=== PATIENT | female | born 1970 | race Caucasian/White ===

== ENCOUNTER → 2016-10-20 | Outpatient (CLI) | payer OTHER ==
--- NOTE | 2016-10-20 14:53 | MM ---
Reason for exam: screening (asymptomatic). Last mammogram was performed 1 year and 4 months ago. History: Family history of breast cancer in paternal grandmother. Took hormonal contraceptives for 10 years. Physical Findings: A clinical breast exam by your physician is recommended on an annual basis and results should be correlated with mammographic findings. MG Screening Mammo w CAD Bilateral CC and MLO view(s) were taken. Prior study comparison: June 24, 2015, bilateral MG 3d screening mammo w/cad. April 22, 2014, bilateral MG screening mammo w CAD. The breast tissue is heterogeneously dense. This may lower the sensitivity of mammography. No suspicious calcifications are seen. Waxing and waining cysts bilaterally. No significant changes when compared with prior studies. ASSESSMENT: Benign, BI-RAD 2 RECOMMENDATION: Routine screening mammogram of both breasts in 1 year.
== END | disposition home or self-care (01) ==
LOC: RADMAMWWP 08:24
PROVIDERS: ATTEND Obstetrics & Gynecology
DX: Z12.31 Encounter for screening mammogram for malignant neoplasm of breast (principal)

== ENCOUNTER → 2018-03-14 | Outpatient (CLI) | payer OTHER ==
--- NOTE | 2018-03-15 13:42 | MM ---
Reason for exam: screening (asymptomatic). Last mammogram was performed 1 year and 5 months ago. History: Family history of breast cancer in paternal grandmother. Took hormonal contraceptives for 10 years. Physical Findings: A clinical breast exam by your physician is recommended on an annual basis and results should be correlated with mammographic findings. MG Screening Mammo w CAD Bilateral CC and MLO view(s) were taken. Prior study comparison: October 20, 2016, bilateral MG screening mammo w CAD. June 24, 2015, bilateral MG 3d screening mammo w/cad. The breast tissue is heterogeneously dense. This may lower the sensitivity of mammography. No suspicious abnormality in the left breast. Retorareolar right focal asymmetry. ASSESSMENT: Incomplete: need additional imaging evaluation, BI-RAD 0 RECOMMENDATION: Special view mammogram of the right breast. If lesion persists on supplemental views, image directed ultrasound is recommended. [facility] will attempt to contact patient to return for supplemental views and ultrasound if indicated.
== END | disposition home or self-care (01) ==
LOC: RADMAMWWP 09:49
PROVIDERS: ATTEND Family Medicine
DX: Z12.31 Encounter for screening mammogram for malignant neoplasm of breast (principal)
CPT/HCPCS: 77067

== ENCOUNTER → 2019-02-07 | Outpatient (CLI) | payer OTHER ==
--- NOTE | 2019-02-07 11:16 | US ---
EXAMINATION TYPE: US abdomen complete DATE OF EXAM: 02/07/2019 COMPARISON: NONE CLINICAL HISTORY: 48-year-old female Z83.79 Family hx of cirrhosis of liver. TECHNIQUE: Multiple sonographic images of the abdomen are obtained. FINDINGS: EXAM MEASUREMENTS: Liver Length: 14.8 cm Gallbladder Wall: 0.2 cm CBD: 0.3 cm Spleen: 11.2 cm Right Kidney: 10.6 x 3.9 x 5.0 cm Left Kidney: 10.4 x 5.2 x 5.0 cm Pancreas: Obscured by bowel gas Liver: Mildly heterogeneous. The left lobe partially obscured by bowel gas. Gallbladder: Tiny 3 mm non-mobile echogenic foci, possible polyp. No abnormal distention, wall thicke manuelito, pericholecystic fluid, or shadowing calculi. CBD: wnl Spleen: wnl Right Kidney: No hydronephrosis. Left Kidney: No hydronephrosis. Inferior pole obscured by bowel gas Upper IVC: wnl Abd Aorta: wnl IMPRESSION: 1. Mildly heterogeneous appearance to the liver parenchyma could be on a technical basis or could ref lect underlying nonspecific hepatocellular disease. 2. Possible 3 mm gallbladder wall polyp. Follow-up ultrasound in 6-12 months to reassess. 3. Bowel gas obscuring multiple structures including the pancreas, portions of the left liver lobe, a nd lower pole left kidney.
== END | disposition home or self-care (01) ==
LOC: RADUSMAIN 08:28
PROVIDERS: ATTEND Family Medicine
DX: Z83.79 Family history of other diseases of the digestive system (principal)
CPT/HCPCS: 76700

== ENCOUNTER → 2022-03-29 | Day surgery (SDC) | payer OTHER ==
--- NOTE | 2022-03-29 13:55 | MM ---
Reason for Exam: Review of outside study. Last mammogram was performed 4 year(s) and 0 month(s) ago. Patient History: Menarche at age 14. First Full-Term at age 22. Patient has history of breast feeding. Patient used Hormonal Contraceptives for 10 years. Paternal grandmother had breast cancer, age 58. Last menstrual period: 03/10/2022 Risk Values: Kathy 5 year model risk: 0.9%. NCI Lifetime model risk: 7.9%. Prior Study Comparison: 06/24/2015 Bilateral Screening Mammogram, [facility]. 10/20/2016 Bilateral Screening Mammogram, [facility]. 03/14/2018 Bilateral Screening Mammogram, [facility]. Tissue Density: Right: The breast tissue is heterogeneously dense. This may lower the sensitivity of mammography. Findings: Analyzed By CAD. There is a partially obscured focal asymmetry within the right breast at 2-3 o'clock 7 cm from the nipple that persists with compression. This is best appreciated on the cc view. This is relatively unchanged from prior mammogram. No suspicious microcalcifications within the right breast. No corresponding mass identified on ultrasound. There is a partially obscured high density focal asymmetry within the right breast at 2-3 o'clock 7 cm from the nipple that persists with compression. This is best appreciated on the cc view. This is relatively unchanged from prior mammogram. No suspicious microcalcifications within the right breast. No corresponding mass identified on ultrasound. Overall Assessment: Suspicious, BI-RAD 4 Management: Stereotactic Core Biopsy of the right breast. A clinical breast exam by your physician is recommended on an annual basis and results should be correlated with mammographic findings. This exam should not preclude additional follow-up of suspicious palpable abnormalities. Results were given to the patient verbally at the time of exam. Electronically signed and approved by: Raul Thompson D.O.
--- NOTE | 2022-03-29 14:25 | USB ---
Risk Values: Kathy 5 year model risk: 0.9%. NCI Lifetime model risk: 7.9%. Electronically signed and approved by: Raul Thompson D.O.
== END ==
LOC: RADUSWWP 12:36
PROVIDERS: ATTEND Obstetrics & Gynecology
DX: R92.8 Other abnormal and inconclusive findings on diagnostic imaging of breast (principal)
CPT/HCPCS: 77065; 76641; G0279; 77061

== ENCOUNTER → 2022-04-10 | Day surgery (SDC) | payer OTHER ==
[2022-04-10 07:22] VITALS: RESP 16
[2022-04-10 08:24] VITALS: BP 132/85; PULSE 66; TEMP 98.2
--- NOTE | 2022-04-12 10:29 | MM ---
Risk Values: Kathy 5 year model risk: 0.9%. NCI Lifetime model risk: 7.9%. Prior Study Comparison: 10/20/2016 Bilateral Screening Mammogram, [facility]. 03/14/2018 Bilateral Screening Mammogram, [facility]. 03/29/2022 Right MG 3D diag mammo w/cad RT, [facility]. Pathology Description: Location: 2 o'clock, middle, central. Approach: CC FA Needle Type: Eviva Cores: 12 Skin Nicks: 1 Gauge: 9 The procedure of stereotactic guided core biopsy was explained to the patient. Benefits, alternatives, and risks were discussed. An informed consent was then obtained. The patient was 1.4 cm, 2:00 right breast mass is identified and targeted for biopsy. We note that he could not be visualized by ultrasound. The shortness pathway for biopsy was chosen. Shortness pathway was a superior approach. I performed the localization, followed by the remainder of the procedure. A vacuum assisted biopsy gun was used to obtain 12 core samples. The patient tolerated the procedure well without any immediate complication. The patient was kept in the radiology department for short stay after the procedure and then discharged home in stable condition. Post biopsy mammogram shows the clip to appear in satisfactory position relative to the targeted area of concern on the preprocedure images, at the 2:00 position. Impression: SUCCESSFUL, UNCOMPLICATED STEREOTACTIC GUIDED CORE BIOPSY OF A 1.4 CM MASS, 2:00 RIGHT BREAST THAT COULD NOT BE IDENTIFIED BY ULTRASOUND AT 2 DIFFERENT MEDICAL SITES. Pathology Results: Result: Benign, Fibrocystic change. RIGHT BREAST, STEREOTACTIC NEEDLE CORE BIOPSY: Fibrocystic changes including microcalcifications and fibrosis/scar with chronic inflammation and hemosiderin-laden histiocytes. Overall Assessment: Benign Management: Diagnostic Mammogram of the right breast in 6 months. Electronically signed and approved by: Lam Mathur M.D. Radiologist
== END ==
LOC: RADMAMWWP 07:07
PROVIDERS: ATTEND Obstetrics & Gynecology
DX: R92.8 Other abnormal and inconclusive findings on diagnostic imaging of breast (principal); N63.12 Unspecified lump in the right breast, upper inner quadrant
CPT/HCPCS: 88305; 19081; A4648; J2001